=== PATIENT | female | born 1970 | race Caucasian/White ===

== ENCOUNTER 2022-04-23 14:32 | Outpatient (CLI) | payer OTHER, SELFPAY ==
--- NOTE | 2022-04-23 14:40 | CRLHL7_ITS ---
For Patients: As a result of the Cures Act, medical imaging exams and procedure reports are released immediately into your electronic medical record. You may view this report before your referring provider. If you have questions, please contact your health care provider. BILATERAL MAMMOGRAM WITH COMPUTER-AIDED DETECTION AND TOMOSYNTHESIS TECHNIQUE: CC and MLO views were obtained. These mammographic images have been obtained using full-field digital technique. These mammographic images were interpreted with the benefit of computer-aided detection. Breast Tomosynthesis was used in this interpretation. COMPARISON FILM: 04/10/2021, 04/09/2020. FINDINGS: There are scattered areas of fibroglandular density IMPRESSION: There is no radiographic evidence for malignancy. ASSESSMENT: BI-RADS Category 2: Benign RECOMMENDATION: Routine screening mammogram in 1 year. A lay language report of this examination will be provided to the patient. Keren Alas M.D. Diagnostic/Breast Radiologist [facility] [email or web address] Transcribed: 3:37 p.m. [email or web address] SHALOM/Dictated by: Keren Alas MD @ 04/24/2022 8:54:00 AM (Electronically Signed)
== END 2022-04-23 14:33 | disposition home or self-care (01) ==
LOC: MAMMO 14:36
PROVIDERS: PCP Physician Assistant Medical; Visit Provider Physician Assistant Medical
DX: Z12.31 Encounter for screening mammogram for malignant neoplasm of breast (principal); R92.8 Other abnormal and inconclusive findings on diagnostic imaging of breast
CPT/HCPCS: 77063; 77067

== ENCOUNTER 2022-07-31 20:06 | Outpatient (CLI) | payer OTHER, SELFPAY | END 2022-07-31 20:07 | disposition home or self-care (01) | LOC: LKVREF 20:07 | PROVIDERS: PCP Physician Assistant Medical; Visit Provider Nurse Practitioner Family | DX: L02.91 Cutaneous abscess, unspecified (principal) | CPT/HCPCS: 87070 ==

== ENCOUNTER 2022-09-03 14:21 | Outpatient (CLI) | payer OTHER, SELFPAY ==
[2022-09-03 21:33] LABS: Chloride* 104 mmol/L (96-114); Potassium* 4.5 mmol/L (3.6-5.1); Sodium* 137 mmol/L (135-149)
[2022-09-03 21:36] LABS: Blood Urea Nitrogen* 7 mg/dL (5-24); Calcium* 9.3 mg/dL (8.4-10.6); Carbon Dioxide* 24 mmol/L (20-32); Estimated Glomerular Filt Rate 69 ml/min; Glucose* 79 mg/dL (60-115)
== END 2022-09-03 14:22 | disposition home or self-care (01) ==
PROVIDERS: PCP Physician Assistant Medical; Visit Provider Physician Assistant Medical
DX: L70.0 Acne vulgaris (principal); Z79.899 Other long term (current) drug therapy
CPT/HCPCS: 80048

== ENCOUNTER 2023-05-05 15:17 | Outpatient (CLI) | payer OTHER, SELFPAY ==
--- NOTE | 2023-05-05 15:20 | CRLHL7_ITS ---
For Patients: As a result of the Cures Act, medical imaging exams and procedure reports are released immediately into your electronic medical record. You may view this report before your referring provider. If you have questions, please contact your health care provider. BILATERAL SCREENING MAMMOGRAM WITH COMPUTER-AIDED DETECTION AND TOMOSYNTHESIS TECHNIQUE: CC and MLO views were obtained. These mammographic images have been obtained using full-field digital technique. These mammographic images were interpreted with the benefit of computer-aided detection. Breast tomosynthesis was used in this interpretation. COMPARISON FILM: 04/23/22, 04/10/21, 04/09/20. FINDINGS: There are scattered areas of fibroglandular density. IMPRESSION: There is no radiographic evidence for malignancy. ASSESSMENT: BI-RADS Category 1: Negative RECOMMENDATION: Routine screening mammogram in 1 year. A lay language report of this examination will be provided to the patient. FARHAD GILMORE M.D. Diagnostic Radiologist [email or web address] Transcribed: 05/06/2023, 5:[address]/Dictated by: Farhad Gilmore MD @ 05/06/2023 12:30:00 PM (Electronically Signed)
== END 2023-05-05 15:18 | disposition home or self-care (01) ==
LOC: MAMMO 15:18
PROVIDERS: PCP Physician Assistant Medical; Visit Provider Physician Assistant Medical
DX: Z12.31 Encounter for screening mammogram for malignant neoplasm of breast (principal)
CPT/HCPCS: 77063; 77067

== ENCOUNTER 2023-11-24 15:08 | Outpatient (CLI) | payer OTHER, SELFPAY ==
--- NOTE | 2023-11-24 15:00 | CRLHL7_ITS ---
For Patients: As a result of the Century Cures Act, medical imaging exams and procedure reports are released immediately into your electronic medical record. You may view this report before your referring provider. If you have questions, please contact your health care provider. INDICATION: Lower right back lump TECHNIQUE: Buchanan-scale and color-flow Doppler ultrasound examination of the lower right back lump. COMPARISON: None. FINDINGS: At the site of the lower right back lump in the subcutaneous fat is a 3.4 x 1.6 x 1.4 cm mass which is near isoechoic with surrounding fat. Color-flow Doppler demonstrates no evidence of hypervascularity within this lesion. IMPRESSION: 3.4 x 1.6 x 1.4 cm near isoechoic mass in the subcutaneous fat at the site of the lower right back lump. Question lipoma. Dictated by Shade Correa MD @ 11/25/2023 8:27:20 AM (Electronically Signed)
--- OUTSIDE RECORDS SUMMARY | 2023-11-24 15:23 | XMS_ITS | Clinical Summary ---
Author Name Unknown Organization [facility] Address [place], [place] [address] Care Team Providers Care Bottle Machine Operator Name Role Phone Nydia Mcrae KERMIT Primary Care Provider [phone]- [phone] Allergies No known active allergies Medications Medication Sig Dispensed Refills Start Date End Date Status ibuprofen (ADVIL) 200 mg tablet Take 1 tablet by mouth 4 times daily if needed. 0 12/26/2010 Active aspirin-acetaminoph en-caffeine, 250-250-65 mg, (EXCEDRIN MIGRAINE) 250-250-65 mg tablet Take 1 tablet by mouth every 6 hours if needed for Headache. Max acetaminophen dose: 4000mg in 24 hrs. 0 12/26/2010 Active Social History Tobacco Use Types Packs/Day Years Used Date Smoking Tobacco: Former Cigarettes Q uit: 12/26/2005 Sex and Gender Information Value Date Recorded Sex Assigned at Not on file Gender Identity Not on file Sexual Orientation Not on file Obstetrics History Last Filed Vital Signs Vital Sign Reading Time Taken Comments Blood Pressure 118/66 12/26/2010 4:22 PM ECHOCARDIOGRAPHY TECHNOLOGIST Pulse 68 12/26/2010 4:22 PM ECHOCARDIOGRAPHY TECHNOLOGIST Temperature - - Respiratory Rate - - Oxygen Saturation - - Inhaled Oxygen Concentration - - Weight 83.2 kg (183 lb 8 oz) 12/26/2010 4:22 PM ECHOCARDIOGRAPHY TECHNOLOGIST Height 177.2 cm (5' 9.75) 12/26/2010 4:22 PM CS T Body Mass Index 26.52 12/26/2010 4:22 PM ECHOCARDIOGRAPHY TECHNOLOGIST Plan of Treatment Health Maintenance Due Date Last Done Comments COVID-19 vaccine series (#1) 06/22/1973 Tdap 1983 Depression screening for age 12+ 1984 HIV for age 15-65 1987 BMI (ht and wt on same day) for age 18+ 1990 Hepatitis C screening for ag e 18-79 1990 Tetanus booster 1992 Pap test for age 21-65 1993 Colonoscopy through age 75 2017 Lipids for age 45-75 2017 Mammogram for age 45-75 2017 Zoster (shingles) series for age 50+ (1 of 2) 2022 Influenza for age 50-64 06/26/2023 Pneumococcal series for age 6-64 Aged Out No longer eligible based on patient's age to complete this topic Care Teams Bottle Machine Operator Relationship Specialty Start Date End Date Clementina January Bianca, [facility] [address] [place] [address] PCP - General Physician Guest History Clerk 01/01/11
== END 2023-11-24 15:09 | disposition home or self-care (01) ==
LOC: US 15:08
PROVIDERS: PCP Physician Assistant Medical; Visit Provider Family Medicine
DX: R22.2 Localized swelling, mass and lump, trunk (principal)
CPT/HCPCS: 76604

== ENCOUNTER 2024-06-03 13:58 | Outpatient (CLI) | payer OTHER, SELFPAY ==
--- NOTE | 2024-06-03 14:00 | CRLHL7_ITS ---
For Patients: As a result of the Century Cures Act, medical imaging exams and procedure reports are released immediately into your electronic medical record. You may view this report before your referring provider. If you have questions, please contact your health care provider. BILATERAL SCREENING MAMMOGRAM WITH COMPUTER-AIDED DETECTION AND TOMOSYNTHESIS TECHNIQUE: CC and MLO views were obtained. These mammographic images have been obtained using full-field digital technique. These mammographic images were interpreted with the benefit of computer-aided detection. Breast Tomosynthesis was used in this interpretation. COMPARISON FILM: 05/05/23, 04/23/22, 04/10/21. FINDINGS: There are scattered areas of fibroglandular density. IMPRESSION: There is no radiographic evidence for malignancy. ASSESSMENT: BI-RADS Category 1: Negative RECOMMENDATION: Routine screening mammogram in 1 year. A lay language report of this examination will be provided to the patient. Farhad Felix M.D. Diagnostic Radiologist [email or web address] SP/Dictated by: Farhad Felix MD @ 06/06/2024 9:31:00 AM (Electronically Signed)
--- OUTSIDE RECORDS SUMMARY | 2024-06-03 14:00 | XMS_ITS | Clinical Summary ---
Author Organization [facility] Address [place], [place] [address] Care Team Providers Care Marketing Intelligence Manager Name Role Phone Clementina Nydia Bianca KERMIT Primary Care Provider +1- [phone] Allergies No known active allergies Medications Medication [...] Comments Blood Pressure 118/66 12/26/2010 4:22 PM PAYROLL SPECIALIST Pulse 68 12/26/2010 4:22 PM PAYROLL SPECIALIST Temperature - - Respiratory Rate - - Oxygen Saturation - - Inhaled Oxygen Concentration - - Weight 83.2 kg (183 lb 8 oz) 12/26/2010 4:22 PM PAYROLL SPECIALIST Height 177.2 cm (5' 9.75) 12/26/2010 4:22 PM CS T Body Mass Index 26.52 12/26/2010 4:22 PM PAYROLL SPECIALIST Plan of Treatment Health Maintenance Due Date Last Done Comments Tdap 1983 Depression screening for age 12+ [...] for age 50+ (1 of 2) 2022 COVID-19 vaccine series (2022-24 season) 2023 Influenza for age 50-64 06/26/2024 Pneumococcal series for age 6-64 Aged Out No longer eligible based on patient's age to complete this topic Care Teams Marketing Intelligence Manager Relationship Specialty Start Date End Date ClementinaJanuary Bianca, [facility] [address] [place] [address] PCP - General Physician Geographic Information Systems Director 01/01/11
== END 2024-06-03 13:59 | disposition home or self-care (01) ==
LOC: MAMMO 13:59
PROVIDERS: PCP Physician Assistant Medical; Visit Provider Family Medicine
DX: Z12.31 Encounter for screening mammogram for malignant neoplasm of breast (principal)
CPT/HCPCS: 77063; 77067

== ENCOUNTER 2025-07-11 15:12 | Outpatient (CLI) | payer OTHER, SELFPAY ==
--- NOTE | 2025-07-11 15:20 | CRLHL7_ITS ---
For Patients: As a result of the Century Cures Act, medical imaging exams and procedure reports are released immediately into your electronic medical record. You may view this report before your referring provider. If you have questions, please contact your health care provider. INDICATION: BILATERAL SCREENING MAMMOGRAM, ASYMPTOMATIC 54 Y/O FEMALE COMPARISON: 06/03/2024, 05/05/2023, 04/23/2022 TECHNIQUE: Digital mammogram in CC and MLO projections including computer-aided detection (CAD) and tomosynthesis. BREAST COMPOSITION: There are scattered areas of fibroglandular density. FINDINGS: No suspicious findings. ASSESSMENT: BI-RADS 1 Negative RECOMMENDATION: Annual screening mammogram. A lay language report of this examination will be provided to the patient. Dictated by: Farhad Felix MD @ 07/12/2025 10:15:49 (Electronically Signed)
== END 2025-07-11 15:13 | disposition home or self-care (01) ==
LOC: MAMMO 15:13
PROVIDERS: PCP Family Medicine; Visit Provider Family Medicine
DX: Z12.31 Encounter for screening mammogram for malignant neoplasm of breast (principal)
CPT/HCPCS: 77063; 77067

== ENCOUNTER 2025-08-16 10:28 | Outpatient (CLI) | payer OTHER, SELFPAY ==
[2025-08-16 21:59] LABS: Albumin* 4.3 g/dL (3.3-5.0); Chloride* 104 mmol/L (96-114); Potassium* 4.4 mmol/L (3.6-5.1); Sodium* 138 mmol/L (135-149)
[2025-08-16 22:01] LABS: Alanine Aminotransferase* 11 U/L (4-35); Anion Gap 10 mEq/L (7-15); Aspartate Amino Transferase* 18 U/L (12-35); Blood Urea Nitrogen* 15 mg/dL (7-30); Carbon Dioxide* 24 mmol/L (20-32); Creatinine* 1.0 mg/dL (0.5-1.5); Estimated Glomerular Filt Rate 68 ml/min
[2025-08-16 22:02] LABS: Alkaline Phosphatase* 64 U/L (40-150); Bilirubin Total* 0.3 mg/dL (0.1-1.5); Calcium* 9.3 mg/dL (8.4-10.6); Cholesterol* 210 mg/dL (90-199); Glucose* 85 mg/dL (60-115); HDL Cholesterol* 47 mg/dL (>=50); Total Protein* 6.7 g/dL (6.0-8.3); Triglycerides* 80 mg/dL (40-149)
[2025-08-16 22:33] LABS: Hepatitis C Virus Antibody* Negative (Negative)
[2025-08-19 11:53] LABS: HPV Source Cervical
[2025-08-22 10:50] LABS: Pap Test Digital Imaging Done
== END 2025-08-16 10:29 | disposition home or self-care (01) ==
PROVIDERS: PCP Family Medicine; Visit Provider Family Medicine
DX: Z12.4 Encounter for screening for malignant neoplasm of cervix (principal); Z00.00 Encounter for general adult medical examination without abnormal findings; Z11.59 Encounter for screening for other viral diseases
CPT/HCPCS: 80053; 80061; 86803; 87624; 87625; 88141; 88142; 88175